=== PATIENT | male | born 1950 | race African-American/Black ===

== ENCOUNTER 2019-02-15 18:47 | Inpatient (IN) | payer OTHER ==
[2019-02-15 19:55] VITALS: BMI 25.7
[2019-02-15] MEDS ORDERED: MENTHOL/PHENOL 1 EACH UD MM PRN (21:44)
[2019-02-15] MEDS ORDERED: MAGNESIUM CITRATE 300 ML BOTTLE PO PRN (21:44)
[2019-02-15] MEDS ORDERED: ACETAMINOPHEN 325 MG TABLET (FP) PO PRN (21:44)
[2019-02-15] MEDS ORDERED: MAG HYDROX/AL HYDROX/SIMETH 30 ML UNIT-DOSE CUP PO PRN (21:44)
[2019-02-15] MEDS ORDERED: IBUPROFEN 400 MG TABLET (FP) PO PRN (21:44)
[2019-02-15] MEDS ORDERED: NICOTINE POLACRILEX 2 MG GUM BUC PRN (21:44)
[2019-02-15] MEDS ORDERED: MAGNESIUM HYDROX 2400MG/30ML ORAL SUSPENSION 30 ML CUP PO PRN (21:44)
[2019-02-15] MEDS ORDERED: BISMUTH SUBSALICYLATE 524 MG/30 ML UD PO PRN (21:44)
--- NOTE | 2019-02-15 21:51 | HP ---
COWS - Scale Resting Pulse: 0= [place] 80 or Below Sweatin= Chills/Flushing Restless Observation: 1= Difficult to Sit Still Pupil Size: 0= Normal to Room Light Bone or Joint Aches: 1= Mild Discomfort Runny Nose/ Eye Tearin= Nasal Congestion GI Upset > 30mins: 2= Nausea/Diarrhea Tremor Observation: 1= Tremor [place], Not Seen Yawning Observation: 1= 1-2x During Session Anxiety or Irritability: 1=Feels Anxious/Irritable Goose Flesh Skin: 0=Smooth Skin COWS Score: 9 CIWA Score Nausea/Vomitin Muscle Tremors: 1-None Visible, but [place] Anxiety: 2 Agitation: 0-Normal Activity Paroxysmal Sweats: 1-Minimal Palms Moist Orientation: 1-Uncertain about Date Tacttile Disturbances: 1-Very Mild Itch/Numbness Auditory Disturbances: 0-None Visual Disturbances: 0-None Headache: 1-Very Mild CIWA-Ar Total Score: 10 - Admission Criteria [facility] Guidelines: Admission for Medically Managed Detox: Requires at least one of the followin. CIWA greater than 12 2. Seizures within the past 24 hours 3. Delirium tremens within the past 24 hours 4. Hallucinations within the past 24 hours 5. Acute intervention needed for co occurring medical disorder 6. Acute intervention needed for co occurring psychiatric disorder 7. Severe withdrawal that cannot be handled at a lower level of care (continued vomiting, continued diarrhea, abnormal vital signs) requiring intravenous medication and/or fluids 8. Admission [facility] Chief Complaint: alcohol and heroin withdrawal symptoms Allergies/Adverse Reactions: Allergies Allergy/AdvReac Type Severity Reaction Status Date / Time No Known Allergies Allergy Verified 02/15/19 19:41 History of Present Illness: Patient is a 69 yo male with hx of alcohol and heroin (intranasal) dependence is here seeking detox d/t withdrawal symptoms. Patient reports stopped attending outpatient methadone maintenance program July 2018. PMHX: DM II, Hep C, OA Psych: denies hx Denies HI/ SI Denies hx of overdose, blackouts or seizures. Exam Limitations: No Limitations - Ebola screening Have you traveled outside of the country in the last 21 days: No (N) Have you had contact with anyone from an Ebola affected area: No Do you have a fever: No - Review of Systems Constitutional: Chills, Loss of Appetite, Changes in sleep, Other (weight gain) EENT: reports: Nose Congestion Respiratory: reports: No Symptoms reported Cardiac: reports: No Symptoms Reported GI: reports: Constipated (last BM x 2 days), Poor Appetite, Poor Fluid Intake, Abdominal cramping, Other (hiccups x 7 months) : reports: Frequency Musculoskeletal: reports: Back Pain, Joint Pain Integumentary: reports: No Symptoms Reported Neuro: reports: Headache Endocrine: reports: No Symptoms Reported Hematology: reports: No Symptoms Reported Psychiatric: reports: Orientated x3, Anxious Other Systems: Reviewed and Negative Patient History - Patient Medical History Hx Anemia: No Hx Asthma: No Hx Chronic Obstructive Pulmonary Disease (COPD): No Hx Cancer: No Hx Cardiac Disorders: No Hx Congestive Heart Failure: No Hx Hypertension: No Hx Hypercholesterolemia: No Hx Pacemaker: No HX Cerebrovascular Accident: No Hx Seizures: No Hx Dementia: No Hx Diabetes: Yes Hx Gastrointestinal Disorders: No Hx Liver Disease: Yes (Hep C ) Hx Genitourinary Disorders: No Hx Sexually Transmitted Disorders: No Hx Renal Disease (ESRD): No Hx Thyroid Disease: No Hx Human Immunodeficiency Virus (HIV): No Hx Hepatitis C: No Hx Depression: No Hx Suicide Attempt: No Hx Bipolar Disorder: No Hx Schizophrenia: No - Patient Surgical History Past Surgical History: No - PPD History Previous Implant?: No Documented Results: Negative w/o proof PPD to be Administered?: Yes - Smoking Cessation Smoking history: Current every day smoker Have you smoked in the past 12 months: Yes Aproximately how many cigarettes per day: 7 Hx Chewing Tobacco Use: No Initiated information on smoking cessation: Yes 'Breaking Loose' booklet given: 02/15/19 - Substance & Tx. History Hx Alcohol Use: Yes Hx Substance Use: Yes Substance Use Type: Alcohol, Heroin Hx Substance Use Treatment: No - Substances abused Heroin Substance route: Inhalation Frequency: Daily Amount used: $50- 70 Age of first use: 20 Date of last use: 02/15/19 Alcohol Substance route: Oral Frequency: 3-6 times per week Amount used: 2 16 0z beer, Age of first use: 17 Date of last use: 02/14/19 Family Disease History - Family Disease History Family History: Denies Admission Physical Exam BHS - Vital Signs Vital Signs: Vital Signs - 24 hr 02/15/19 19:40 Temperature 98.2 F Pulse Rate 69 Respiratory 17 Rate Blood Pressure 168/87 - Physical General Appearance: Yes: Appropriately Dressed, Thin, Anxious HEENTM: Yes: EOMI, Hearing grossly Normal, Normocephalic, Normal Voice, HUMERA, Pharynx Normal, Tm's normal, Other (edentulous, cheilitis) Respiratory: Yes: Chest Non-Tender, Lungs Clear, Normal Breath Sounds, No Respiratory Distress, No Accessory Muscle Use Neck: Yes: Within Normal Limits Breast: Yes: Breast Exam Deferred Cardiology: Yes: Regular Rhythm, Regular Rate, Murmur Abdominal: Yes: Normal Bowel Sounds, Non Tender, Flat Genitourinary: Yes: Within Normal Limits Back: Yes: Normal Inspection Musculoskeletal: Yes: full range of Motion, Gait Steady, Pelvis Stable, Back pain, Other (cane for ambualtion) Extremities: Yes: Normal Capillary Refill, Normal Inspection, Normal Range of Motion, Non-Tender Neurological: Yes: try out person II-XII NML intact, Fully Oriented, Alert, Motor Strength 5/5, Depressed Affect Integumentary: Yes: Normal Color, Warm, Diaphoresis Lymphatic: Yes: Within Normal Limits - Diagnostic (1) Opioid dependence with withdrawal Current Visit: Yes Status: Acute (2) Alcohol dependence with uncomplicated withdrawal Current Visit: Yes Status: Acute (3) Diabetes mellitus Current Visit: Yes Status: Chronic Qualifiers: Diabetes mellitus type: type 2 (4) Osteoarthritis Current Visit: Yes Status: Chronic (5) Hepatitis C Current Visit: Yes Status: Chronic Cleared for Admission [facility] - Detox or Rehab [facility] Level of Care: Medically Managed Detox Regimen/Protocol: Methadone/Librium Breathalyzer - Breathalyzer Breathalyzer: 0 Urine Drug Screen - Test Device Lot number: [id number] - Control Is test valid?: Yes - Results Drug screen NEGATIVE: No Urine drug screen results: MOP-Opiates, MTD-Methadone Inpatient Rehab Admission - Rehab Decision to Admit Inpatient rehab admission?: No
[2019-02-15] MEDS ORDERED: chlordiazePOXIDE HCL 10 MG CAPSULE PO PRN (21:52)
[2019-02-15] MEDS ORDERED: METHADONE HCL 10 MG TABLET (FOR DETOX USE ONLY) PO ONE (23:00)
[2019-02-15] MEDS: THIAMINE HCL 100 MG TABLET (FP) PO SCH (23:21)
[2019-02-15] MEDS: chlordiazePOXIDE HCL 25 MG CAPSULE PO SCH (23:21)
[2019-02-15] MEDS: MELATONIN 5 MG TABLETS PO PRN (23:24)
[2019-02-15] MEDS: INSULIN (LEVEMIR) 100 UNITS/ML UNITS SQ SCH (23:28)
[2019-02-16] MEDS: chlordiazePOXIDE HCL 25 MG CAPSULE PO SCH ×2 (05:25→13:40)
[2019-02-16] MEDS: metFORMIN HCL 500 MG TABLET (FP) PO SCH ×2 (07:42→17:25)
[2019-02-16 09:38] LABS: HEMATOCRIT 41.2 % (35.4-49); HEMOGLOBIN 13.7 GM/dL (11.7-16.9); MCH 32.7 pg (25.7-33.7); MCHC 33.4 g/dl (32.0-35.9); MEAN CELL VOLUME 97.9 fl (80-96); MEAN PLT VOLUME 8.5 fl (7.5-11.1); PLATELET COUNT 265 K/MM3 (134-434); RBC 4.21 M/mm3 (4.00-5.60); RDW 14.4 % (11.9-15.9); WHITE BLOOD COUNT 8.3 K/mm3 (4.0-10.0)
[2019-02-16 09:55] LABS: ALBUMIN 3.3 g/dl (3.4-5.0); BILIRUBIN,TOTAL 0.6 mg/dL (0.2-1); BLOOD UREA NITROGEN 12.4 mg/dL (7-18); CREATININE 1.1 mg/dL (0.55-1.3); TOT PROT 7.3 g/dl (6.4-8.2)
[2019-02-16] MEDS ORDERED: METHADONE HCL 5 MG TABLET (FOR DETOX USE ONLY) PO ONE (10:00)
[2019-02-16] MEDS: PRENATAL VITAMINS W/ FOLIC ACID TABLET (FP) PO SCH (10:36)
[2019-02-16] MEDS: NICOTINE 14 MG/24 HOURS TOPICAL PATCH TD SCH (10:39)
[2019-02-16] MEDS: ASPIRIN 325 MG ENTERIC COATED TABLET (FP) PO SCH (11:09)
--- NOTE | 2019-02-16 13:09 | PN ---
S CIWA - CIWA Score Nausea/Vomitin Muscle Tremors: 2 Anxiety: 2 Agitation: 2 Paroxysmal Sweats: 1-Minimal Palms Moist Orientation: 0-Oriented Tacttile Disturbances: 1-Very Mild Itch/Numbness Auditory Disturbances: 1-Very Mild Visual Disturbances: 0-None Headache: 1-Very Mild CIWA-Ar Total Score: 12 BHS COWS - Scale Resting Pulse: 1= [place] 81-100 Sweatin= Chills/Flushing Restless Observation: 1= Difficult to Sit Still Pupil Size: 1= Pupils >than Normal Bone or Joint Aches: 2= Severe Diffuse Aches Runny Nose/ Eye Tearin= Nasal Congestion GI Upset > 30mins: 2= Nausea/Diarrhea Tremor Observation of Outstretched Hands: 2= Slight Tremor Visible Yawning Observation: 1= 1-2x During Session Anxiety or Irritability: 1=Feels Anxious/Irritable Goose Flesh Skin: 0=Smooth Skin COWS Score: 13 S Progress Note (SOAP) Subjective: alert,irritable,anxious,interrupted sleep,tremor,pain in the body Objective: 02/16/19 13:07 Vital Signs Temperature 97.6 F 02/16/19 09:31 Pulse Rate 88 02/16/19 09:31 Respiratory Rate 18 02/16/19 09:31 Blood Pressure 139/77 02/16/19 09:31 O2 Sat by Pulse Oximetry (%) 02/16/19 13:07 Laboratory Last Values WBC 8.3 K/mm3 (4.0-10.0) 02/16/19 07:30 RBC 4.21 M/mm3 (4.00-5.60) 02/16/19 07:30 Hgb 13.7 GM/dL (11.7-16.9) 02/16/19 07:30 Hct 41.2 % (35.4-49) 02/16/19 07:30 MCV 97.9 fl (80-96) H 02/16/19 07:30 MCH 32.7 pg (25.7-33.7) 02/16/19 07:30 MCHC 33.4 g/dl (32.0-35.9) 02/16/19 07:30 RDW 14.4 % (11.9-15.9) 02/16/19 07:30 Plt Count 265 K/MM3 (134-434) 02/16/19 07:30 MPV 8.5 fl (7.5-11.1) 02/16/19 07:30 Sodium 139 mmol/L (136-145) 02/16/19 07:30 Potassium 4.0 mmol/L (3.5-5.1) 02/16/19 07:30 Chloride 104 mmol/L (98-107) 02/16/19 07:30 Carbon Dioxide 29 mmol/L (21-32) 02/16/19 07:30 Anion Gap 6 MMOL/L (8-16) L 02/16/19 07:30 BUN 12.4 mg/dL (7-18) 02/16/19 07:30 Creatinine 1.1 mg/dL (0.55-1.3) 02/16/19 07:30 Est GFR (CKD-EPI)AfAm 79.52 02/16/19 07:30 Est GFR (CKD-EPI)NonAf 68.61 02/16/19 07:30 POC Glucometer 135 UNITS (80-120) 02/16/19 11:06 Random Glucose 128 mg/dL (74-106) H 02/16/19 07:30 Calcium 9.0 mg/dL (8.5-10.1) 02/16/19 07:30 Total Bilirubin 0.6 mg/dL (0.2-1) 02/16/19 07:30 AST 41 U/L (15-37) H 02/16/19 07:30 ALT 55 U/L (13-61) 02/16/19 07:30 Alkaline Phosphatase 84 U/L (45-117) 02/16/19 07:30 Total Protein 7.3 g/dl (6.4-8.2) 02/16/19 07:30 Albumin 3.3 g/dl (3.4-5.0) L 02/16/19 07:30 RPR Titer Nonreactive (NONREACTIVE) 02/16/19 07:30 Assessment: 02/16/19 13:08 withdrawal symptom Plan: continue detox,bgm monitoring
[2019-02-16] MEDS: ACETAMINOPHEN 325 MG TABLET (FP) PO PRN (17:26)
[2019-02-16] MEDS: chlordiazePOXIDE 5 MG CAPSULE PO SCH (22:14)
[2019-02-16] MEDS: MELATONIN 5 MG TABLETS PO PRN (22:17)
[2019-02-16] MEDS: THIAMINE HCL 100 MG TABLET (FP) PO SCH (22:18)
[2019-02-16] MEDS: INSULIN (LEVEMIR) 100 UNITS/ML UNITS SQ SCH (22:19)
[2019-02-17] MEDS: ACETAMINOPHEN 325 MG TABLET (FP) PO PRN (05:31)
[2019-02-17] MEDS: chlordiazePOXIDE 5 MG CAPSULE PO SCH ×2 (05:31→13:47)
[2019-02-17] MEDS: metFORMIN HCL 500 MG TABLET (FP) PO SCH ×2 (07:46→17:47)
[2019-02-17] MEDS ORDERED: METHADONE HCL 10 MG TABLET (FOR DETOX USE ONLY) PO ONE (10:00)
[2019-02-17] MEDS: ASPIRIN 325 MG ENTERIC COATED TABLET (FP) PO SCH (10:24)
[2019-02-17] MEDS: PRENATAL VITAMINS W/ FOLIC ACID TABLET (FP) PO SCH (10:24)
[2019-02-17] MEDS: NICOTINE 14 MG/24 HOURS TOPICAL PATCH TD SCH (10:25)
[2019-02-17] MEDS: METHOCARBAMOL 500 MG TABLET PO PRN ×2 (11:44→17:50)
--- NOTE | 2019-02-17 12:53 | PN ---
S CIWA - CIWA Score Nausea/Vomitin Muscle Tremors: 2 Anxiety: 2 Agitation: 2 Paroxysmal Sweats: 1-Minimal Palms Moist Orientation: 0-Oriented Tacttile Disturbances: 1-Very Mild Itch/Numbness Auditory Disturbances: 0-None Visual Disturbances: 0-None Headache: 1-Very Mild CIWA-Ar Total Score: 11 BHS COWS - Scale Resting Pulse: 1= [place] 81-100 Sweatin= Chills/Flushing Restless Observation: 1= Difficult to Sit Still Pupil Size: 1= Pupils >than Normal Bone or Joint Aches: 2= Severe Diffuse Aches Runny Nose/ Eye Tearin= Runny Nose/Eyes GI Upset > 30mins: 2= Nausea/Diarrhea Tremor Observation of Outstretched Hands: 2= Slight Tremor Visible Yawning Observation: 1= 1-2x During Session Anxiety or Irritability: 2=Irritable/Anxious Goose Flesh Skin: 0=Smooth Skin COWS Score: 15 S Progress Note (SOAP) Subjective: alert,irritable,anxious,interrupted sleep,tremor,pain in the body and back Objective: 02/17/19 12:56 Vital Signs Temperature 98.1 F 02/17/19 09:33 Pulse Rate 81 02/17/19 09:33 Respiratory Rate 18 02/17/19 09:33 Blood Pressure 131/73 02/17/19 09:33 O2 Sat by Pulse Oximetry (%) Laboratory Last Values WBC 8.3 K/mm3 (4.0-10.0) 02/16/19 07:30 RBC 4.21 M/mm3 (4.00-5.60) 02/16/19 07:30 Hgb 13.7 GM/dL (11.7-16.9) 02/16/19 07:30 Hct 41.2 % (35.4-49) 02/16/19 07:30 MCV 97.9 fl (80-96) H 02/16/19 07:30 MCH 32.7 pg (25.7-33.7) 02/16/19 07:30 MCHC 33.4 g/dl (32.0-35.9) 02/16/19 07:30 RDW 14.4 % (11.9-15.9) 02/16/19 07:30 Plt Count 265 K/MM3 (134-434) 02/16/19 07:30 MPV 8.5 fl (7.5-11.1) 02/16/19 07:30 Sodium 139 mmol/L (136-145) 02/16/19 07:30 Potassium 4.0 mmol/L (3.5-5.1) 02/16/19 07:30 Chloride 104 mmol/L (98-107) 02/16/19 07:30 Carbon Dioxide 29 mmol/L (21-32) 02/16/19 07:30 Anion Gap 6 MMOL/L (8-16) L 02/16/19 07:30 BUN 12.4 mg/dL (7-18) 02/16/19 07:30 Creatinine 1.1 mg/dL (0.55-1.3) 02/16/19 07:30 Est GFR (CKD-EPI)AfAm 79.52 02/16/19 07:30 Est GFR (CKD-EPI)NonAf 68.61 02/16/19 07:30 POC Glucometer 101 UNITS (80-120) 02/17/19 11:40 Random Glucose 128 mg/dL (74-106) H 02/16/19 07:30 Calcium 9.0 mg/dL (8.5-10.1) 02/16/19 07:30 Total Bilirubin 0.6 mg/dL (0.2-1) 02/16/19 07:30 AST 41 U/L (15-37) H 02/16/19 07:30 ALT 55 U/L (13-61) 02/16/19 07:30 Alkaline Phosphatase 84 U/L (45-117) 02/16/19 07:30 Total Protein 7.3 g/dl (6.4-8.2) 02/16/19 07:30 Albumin 3.3 g/dl (3.4-5.0) L 02/16/19 07:30 RPR Titer Nonreactive (NONREACTIVE) 02/16/19 07:30 Assessment: 02/17/19 12:57 withdrawal symptom Plan: continue detox
--- NOTE | 2019-02-17 13:28 | EKG ---
Test Reason : Blood Pressure : / mmHG Vent. Rate : 067 BPM Atrial Rate : 067 BPM P-R Int : 144 ms QRS Dur : 074 ms QT Int : 426 ms P-R-T Axes : 037 014 058 degrees QTc Int : 450 ms NORMAL SINUS RHYTHM NORMAL ECG NO PREVIOUS ECGS AVAILABLE Confirmed by LEONELA NIX MD ([id number]) on 02/17/2019 1:28:31 PM Referred By: Roger Haile Confirmed By:LEONELA NIX MD
[2019-02-17] MEDS ORDERED: chlordiazePOXIDE HCL 10 MG CAPSULE PO PRN (21:00)
[2019-02-17] MEDS: INSULIN (LEVEMIR) 100 UNITS/ML UNITS SQ SCH (22:33)
[2019-02-17] MEDS: chlordiazePOXIDE HCL 10 MG CAPSULE PO SCH (22:36)
[2019-02-17] MEDS: THIAMINE HCL 100 MG TABLET (FP) PO SCH (22:36)
[2019-02-18] MEDS: METHOCARBAMOL 500 MG TABLET PO PRN ×2 (00:56→07:19)
[2019-02-18] MEDS: chlordiazePOXIDE HCL 10 MG CAPSULE PO SCH (05:53)
[2019-02-18] MEDS ORDERED: METHADONE HCL 5 MG TABLET (FOR DETOX USE ONLY) PO ONE (06:00)
[2019-02-18] MEDS: ACETAMINOPHEN 325 MG TABLET (FP) PO PRN (07:17)
[2019-02-18] MEDS: metFORMIN HCL 500 MG TABLET (FP) PO SCH (07:19)
[2019-02-18 09:45] VITALS: BP 132/85; PULSE 82; TEMP 97
--- NOTE | 2019-02-18 11:53 | DS ---
[facility] Detox Discharge Summary Admission Date: 02/15/19 Discharge Date: 02/18/19 - History Present History: Alcohol Dependence, Opioid Dependence Additional Comments: Pt is medically cleared and is discharged today. As per counselor's notes, "patient is still uninterested in after care. patient was encouraged to address his relapse triggers". Pt is still encouraged to follow-up with CD outpatient program and also to follow-up with his pmd. Pt verbalized understanding. Pt is AOX3, and in no respiratory distress. Pertinent Past History: H/O DM, HEPC, OA, alcohol and heroine use disorder. - Physical Exam Results Vital Signs: Vital Signs Temperature 97.0 F L 02/18/19 09:44 Pulse Rate 82 02/18/19 09:44 Respiratory Rate 18 02/18/19 09:44 Blood Pressure 132/85 02/18/19 09:44 O2 Sat by Pulse Oximetry (%) Lab Results WBC 8.3 K/mm3 (4.0-10.0) 02/16/19 07:30 RBC 4.21 M/mm3 (4.00-5.60) 02/16/19 07:30 Hgb 13.7 GM/dL (11.7-16.9) 02/16/19 07:30 Hct 41.2 % (35.4-49) 02/16/19 07:30 MCV 97.9 fl (80-96) H 02/16/19 07:30 MCHC 33.4 g/dl (32.0-35.9) 02/16/19 07:30 RDW 14.4 % (11.9-15.9) 02/16/19 07:30 Plt Count 265 K/MM3 (134-434) 02/16/19 07:30 Sodium 139 mmol/L (136-145) 02/16/19 07:30 Potassium 4.0 mmol/L (3.5-5.1) 02/16/19 07:30 Chloride 104 mmol/L (98-107) 02/16/19 07:30 Carbon Dioxide 29 mmol/L (21-32) 02/16/19 07:30 Anion Gap 6 MMOL/L (8-16) L 02/16/19 07:30 BUN 12.4 mg/dL (7-18) 02/16/19 07:30 Creatinine 1.1 mg/dL (0.55-1.3) 02/16/19 07:30 Random Glucose 128 mg/dL (74-106) H 02/16/19 07:30 Calcium 9.0 mg/dL (8.5-10.1) 02/16/19 07:30 Labs noted. Pertinent Admission Physical Exam Findings: withdrawal symptoms. - Treatment Hospital Course: Detox Protocol Followed, Detoxed Safely, Responded well, Discharged Condition Good - Medication Discharge Medications: Ambulatory Orders Aspirin Coated [Ecotrin -] 325 mg PO DAILY 02/15/19 Insulin Detemir [Levemir Flextouch] 35 unit SQ HS 02/15/19 Metformin HCl [Glucophage] 1,000 mg PO BID 02/15/19 Multivitamin [Multiple Vitamins] 1 each PO DAILY 02/15/19 - Diagnosis (1) Alcohol dependence with uncomplicated withdrawal Status: Acute (2) Opioid dependence with withdrawal Status: Acute (3) Diabetes mellitus Status: Chronic Qualifiers: Diabetes mellitus type: type 2 (4) Hepatitis C Status: Chronic (5) Osteoarthritis Status: Chronic - AMA Did Patient Leave Against Medical Advice: No
== END 2019-02-18 09:30 | disposition home or self-care (01) | DRG 897 ==
LOC: YASAS 18:47 → Y3N 22:35
PROVIDERS: ADMIT Surgery; ATTEND Surgery
PROC: HZ2ZZZZ Detoxification Services for Substance Abuse Treatment (ICD-10-PCS; principal; 2019-02-15)
DX: F10.230 Alcohol dependence with withdrawal, uncomplicated (principal); F11.23 Opioid dependence with withdrawal; F17.210 Nicotine dependence, cigarettes, uncomplicated; E11.9 Type 2 diabetes mellitus without complications; Z79.4 Long term (current) use of insulin; B18.2 Chronic viral hepatitis C; M19.90 Unspecified osteoarthritis, unspecified site
CPT/HCPCS: 36415; 80053; 82962; 85027; 86593; 93005; 93010